=== PATIENT | male | born 1980 | race Caucasian/White ===

== ENCOUNTER 2017-12-31 11:51 | Emergency (ER) | payer OTHER ==
[~2017-12-31] VITALS: Ht 165.1 cm; Wt 103.9 kg
[2017-12-31 11:56] VITALS: Ht 165.1 cm; Wt 103.9 kg
[2017-12-31 12:53] LABS: BASOPHIL % 0.1 % (0-2); PLATELET COUNT 232 x10^3mcL (130-400); RED CELL DISTRIBUTION WIDTH 13.8 % (11.5-14.5)
[2017-12-31 13:03] LABS: CALCIUM 9.2 mg/dL (8.5-10.1); CARBON DIOXIDE 22.2 mmol/L (21-32); CHLORIDE SERUM 106 mmol/L (98-107); CREATININE SERUM 0.8 mg/dL (0.7-1.3); GFR1 > 60 mL/min; GLUCOSE SERUM 99 mg/dL (74-106); POTASSIUM SERUM 3.6 mmol/L (3.5-5.1); SODIUM SERUM 138 mmol/L (136-145)
[2017-12-31 13:07] LABS: ALBUMIN 3.8 g/dL (3.4-5.0); ALKALINE PHOSPHATASE 92 U/L (46-116); ALT/SGPT 46 U/L (16-63); AST/SGOT 30 U/L (15-37); CHOLESTEROL 176 mg/dL (<200); CHOLESTEROL/HDL RATIO 4.3; HDL CHOLESTEROL 41 mg/dL (40-60); LIPASE 209 IU/L (73-393); TOTAL PROTEIN, SERUM 7.5 g/dL (6.4-8.2); TRIGLYCERIDES 65 mg/dL (<150)
[2017-12-31 13:11] LABS: T3 TOTAL 1.64 ng/mL
[2017-12-31 13:50] LABS: FREE T4 1.09 ng/dL (0.76-1.46); FREE THYROXINE INDEX 3.3 ug/dL (1.4-4.5); T4(THYROXINE) 9.9 ug/dL (4.7-13.3)
[2017-12-31 14:03] VITALS: BP 129/81
== END 2017-12-31 14:03 | disposition home or self-care (01) ==
LOC: ED 11:51
PROVIDERS: Specialist
DX: F41.9 Anxiety disorder, unspecified (principal); R06.4 Hyperventilation
CPT/HCPCS: 36415; 83880; 84439; J2060

== ENCOUNTER 2020-05-03 08:13 | Emergency (ER) | payer BC ==
[~2020-05-03] VITALS: Ht 165.1 cm; Wt 117.9 kg
[2020-05-03 08:23] VITALS: BP 147/111; Ht 165.1 cm; Wt 117.9 kg
== END 2020-05-03 09:33 | disposition home or self-care (01) ==
LOC: ED 08:13
DX: N23 Unspecified renal colic (principal)